=== PATIENT | female | born 1945 | race Caucasian/White ===

== ENCOUNTER 2017-02-14 13:48 | Inpatient (IN) | payer OTHER ==
[~2017-02-14] VITALS: Ht 157.5 cm; Wt 64.9 kg
[2017-02-14 13:55] VITALS: BP_SYST 138
[2017-02-14 14:43] LABS: BASOPHILS % (AUTO) 0.2 % (0.0-2.0); EOSINOPHILS % (AUTO) 0.1 % (0.0-4.0); HEMATOCRIT 45.3 % (36-48); HEMOGLOBIN 14.9 g/dL (12.0-16.0); LYMPHOCYTES # (AUTO) 1.1 K/uL (1.0-5.5); LYMPHOCYTES % (AUTO) 4.3 % (20.5-51.5); MEAN CORPUSCULAR HEMOGLOBIN 29 pg (27-31); MEAN CORPUSCULAR HGB CONC 33 % (32-36); MEAN CORPUSCULAR VOLUME 89 fL (79.0-98.0); MONOCYTES # (AUTO) 0.3 K/uL (0.0-1.0); MONOCYTES % (AUTO) 1.1 % (1.7-9.3); NEUTROPHILS # (AUTO) 23.2 K/uL (1.8-7.7); NEUTROPHILS % (AUTO) 94.3 % (40.0-70.0); PLATELET COUNT (AUTO) 166 K/uL (130-430); RED BLOOD CELL COUNT(AUTO) 5.08 MIL/uL (4.2-6.2); RED CELL DISTRIBUTION WIDTH 12.4 % (9.0-15.0); WHITE BLOOD COUNT (AUTO) 24.6 K/uL (4.8-10.8)
[2017-02-14] MEDS ORDERED: KETOROLAC TROMETHAMINE 30 MG VIAL IVP ONE (14:45)
[2017-02-14] MEDS ORDERED: NACL 0.9% 1,000 ML IV ONE ×2 (14:45→16:45)
[2017-02-14] MEDS ORDERED: fentaNYL CITRATE/PF 100 MCG/2 ML AMP IVP ONE (14:45)
[2017-02-14 14:48] LABS: BILIRUBIN,URINE NEGATIVE (NEGATIVE); BLOOD, URINE 3+ (NEGATIVE); CLARITY/URINE HAZY (CLEAR); COLOR,URINE YELLOW (YELLOW); GLUCOSE,URINE NEGATIVE (NEGATIVE); KETONES,URINE TRACE (NEGATIVE); LEUKOCYTE ESTERASE ,URINE 2+ (NEGATIVE); NITRITE, URINE NEGATIVE (NEGATIVE); PH,URINE 5.5 (5.0-8.0); PROTEIN URINE 2+ (NEGATIVE); SODIUM SERUM 137 mmol/L (136-145); UROBILINOGEN,URINE 0.2 (0.2-1.0)
[2017-02-14 14:49] LABS: ANION GAP 10 (5-15); CALCIUM 10.2 mg/dL (8.4-11.0); CHLORIDE 102 mmol/L (98-107); GLUCOSE 188 mg/dL (70-99); POTASSIUM 3.4 mmol/L (3.5-5.1); UREA NITROGEN, BLOOD 27 mg/dL (8-21)
[2017-02-14 14:53] LABS: ALANINE AMINOTRANSFERASE 90 U/L (12-78); ALBUMIN 4.5 g/dL (3.4-4.8); ASPARTATE AMINOTRANSFERASE 42 U/L (10-37); LIPASE 107 U/L (73-393); TOTAL BILIRUBIN 0.9 mg/dL (0.0-1.0); TOTAL PROTEIN, SERUM 8.7 g/dL (6.4-8.3)
[2017-02-14] MEDS ORDERED: cefOXitin SODIUM 2 GM in D5W 100 ML IV ONE (15:00)
[2017-02-14 15:02] LABS: BACTERIA,URINE MODERATE /HPF (None Seen); MUCUS,URINE None Seen /LPF (None Seen)
[2017-02-14] MEDS ORDERED: IOHEXOL 100 ML IV ONE (15:44)
[2017-02-14] MEDS ORDERED: cefOXitin SODIUM 2 GM/VIAL (MEFOXIN) ONE (16:02)
[2017-02-14] MEDS ORDERED: GLUXR500 PO (17:27)
[2017-02-14] MEDS ORDERED: LISI10TA5 PO (17:27)
[2017-02-14] MEDS ORDERED: LIP10 PO (17:27)
[2017-02-14 18:03] VITALS: BP_SYST 127
[2017-02-14 20:00] VITALS: BP_SYST 137
[2017-02-14] MEDS ORDERED: ONDANSETRON HCL 4 MG/2 ML VIAL IVP PRN (23:00)
[2017-02-14] MEDS ORDERED: POTASSIUM CHLORIDE 20 MEQ TAB.PRT.SR PO ONE (23:00)
[2017-02-14] MEDS ORDERED: INSULIN REGULAR, HUMAN 100 UNITS/ML, 10 ML VIAL (novoLIN R) SUBCUT PRN (23:15)
[2017-02-14] MEDS ORDERED: KETOROLAC TROMETHAMINE 15 MG VIAL IVP PRN (23:15)
[2017-02-14] MEDS ORDERED: MAG-AL HYDROX/SIMETH 30 ML UDC PO PRN (23:15)
[2017-02-14] MEDS ORDERED: ACETAMINOPHEN 325 MG TABLET PO PRN (23:15)
[2017-02-14] MEDS ORDERED: DEXTROSE 50% JECT 50 ML DISP.SYRIN IVP PRN (23:15)
[2017-02-15] MEDS ORDERED: PIPERACILLIN/TAZOBACTAM 4.5 GM/VIAL (ZOSYN) IV ONE (00:03)
[2017-02-15] MEDS: LR 1,000 ML IV SCH ×4 (00:28→23:17)
[2017-02-15] MEDS: PIPERACILLIN/TAZO 4.5GM/DEX-IS 100 ML IV SCH ×4 (01:24→23:16)
[2017-02-15 04:52] VITALS: BP_SYST 117
[2017-02-15 06:53] LABS: BASOPHILS % (AUTO) 0.1 % (0.0-2.0); EOSINOPHILS % (AUTO) 0.1 % (0.0-4.0); HEMATOCRIT 37.8 % (36-48); HEMOGLOBIN 12.9 g/dL (12.0-16.0); LYMPHOCYTES # (AUTO) 1.3 K/uL (1.0-5.5); LYMPHOCYTES % (AUTO) 7.6 % (20.5-51.5); MEAN CORPUSCULAR HEMOGLOBIN 30 pg (27-31); MEAN CORPUSCULAR HGB CONC 34 % (32-36); MEAN CORPUSCULAR VOLUME 89 fL (79.0-98.0); MONOCYTES # (AUTO) 0.9 K/uL (0.0-1.0); MONOCYTES % (AUTO) 5.4 % (1.7-9.3); NEUTROPHILS # (AUTO) 14.6 K/uL (1.8-7.7); NEUTROPHILS % (AUTO) 86.8 % (40.0-70.0); PLATELET COUNT (AUTO) 115 K/uL (130-430); RED BLOOD CELL COUNT(AUTO) 4.25 MIL/uL (4.2-6.2); RED CELL DISTRIBUTION WIDTH 12.9 % (9.0-15.0); WHITE BLOOD COUNT (AUTO) 16.8 K/uL (4.8-10.8)
[2017-02-15 07:14] LABS: ALANINE AMINOTRANSFERASE 66 U/L (12-78); ALBUMIN 3.6 g/dL (3.4-4.8); ANION GAP 10 (5-15); ASPARTATE AMINOTRANSFERASE 32 U/L (10-37); CALCIUM 10.1 mg/dL (8.4-11.0); CHLORIDE 106 mmol/L (98-107); CHOLESTEROL 141 mg/dL (<200); CREATININE 0.95 mg/dL (0.55-1.30); GLUCOSE 136 mg/dL (70-99); HDL CHOLESTEROL 56 mg/dL (>55); LDL CHOLESTEROL 70 mg/dL (<100); LIPASE 110 U/L (73-393); POTASSIUM 4.5 mmol/L (3.5-5.1); SODIUM SERUM 140 mmol/L (136-145); TOTAL BILIRUBIN 0.9 mg/dL (0.0-1.0); TOTAL PROTEIN, SERUM 7.2 g/dL (6.4-8.3); TRIGLYCERIDES 75 mg/dL (30-150); UREA NITROGEN, BLOOD 21 mg/dL (8-21)
[2017-02-15 08:00] VITALS: BP_SYST 128
[2017-02-15] MEDS: ATORVASTATIN 10 MG TABLET PO SCH (10:30)
[2017-02-15] MEDS: LISINOPRIL 10 MG TABLET (PRINIVIL) PO SCH (10:31)
[2017-02-15 12:10] VITALS: BP_SYST 128
[2017-02-15 16:00] VITALS: BP_SYST 111
[2017-02-15 16:00] LABS: PROTHROMBIN TIME 10.9 SECS (9.5-12.5)
[2017-02-15 19:00] VITALS: BP_SYST 124
[2017-02-15 20:00] VITALS: BP_SYST 124
[2017-02-15] MEDS ORDERED: ZOLPIDEM TARTRATE 5 MG TABLET PO PRN (21:45)
[2017-02-16 02:40] VITALS: BP_SYST 146
[2017-02-16 04:28] VITALS: BP_SYST 114
[2017-02-16 06:36] LABS: BASOPHILS % (AUTO) 0.2 % (0.0-2.0); EOSINOPHILS % (AUTO) 0.3 % (0.0-4.0); HEMATOCRIT 37.1 % (36-48); HEMOGLOBIN 12.8 g/dL (12.0-16.0); LYMPHOCYTES # (AUTO) 1.9 K/uL (1.0-5.5); LYMPHOCYTES % (AUTO) 18.8 % (20.5-51.5); MEAN CORPUSCULAR HEMOGLOBIN 31 pg (27-31); MEAN CORPUSCULAR HGB CONC 35 % (32-36); MEAN CORPUSCULAR VOLUME 88 fL (79.0-98.0); MONOCYTES # (AUTO) 0.8 K/uL (0.0-1.0); MONOCYTES % (AUTO) 8.4 % (1.7-9.3); NEUTROPHILS # (AUTO) 7.3 K/uL (1.8-7.7); NEUTROPHILS % (AUTO) 72.3 % (40.0-70.0); PLATELET COUNT (AUTO) 117 K/uL (130-430); RED CELL DISTRIBUTION WIDTH 12.6 % (9.0-15.0)
[2017-02-16 06:37] LABS: ANION GAP 6 (5-15); ASPARTATE AMINOTRANSFERASE 30 U/L (10-37); CALCIUM 9.1 mg/dL (8.4-11.0); CHLORIDE 105 mmol/L (98-107); CREATININE 0.88 mg/dL (0.55-1.30); GLUCOSE 116 mg/dL (70-99); POTASSIUM 3.9 mmol/L (3.5-5.1); SODIUM SERUM 138 mmol/L (136-145); TOTAL BILIRUBIN 0.9 mg/dL (0.0-1.0); UREA NITROGEN, BLOOD 18 mg/dL (8-21)
[2017-02-16 06:38] LABS: ALANINE AMINOTRANSFERASE 61 U/L (12-78); ALBUMIN 3.3 g/dL (3.4-4.8); LIPASE 179 U/L (73-393); TOTAL PROTEIN, SERUM 6.9 g/dL (6.4-8.3)
[2017-02-16 08:00] VITALS: BP_SYST 127
[2017-02-16] MEDS: PIPERACILLIN/TAZO 4.5GM/DEX-IS 100 ML IV SCH (08:40)
[2017-02-16] MEDS: ATORVASTATIN 10 MG TABLET PO SCH (11:09)
[2017-02-16] MEDS: LR 1,000 ML IV SCH (11:09)
[2017-02-16] MEDS: LISINOPRIL 10 MG TABLET (PRINIVIL) PO SCH (11:11)
[2017-02-16 12:53] VITALS: BP_SYST 109
[2017-02-16] MEDS ORDERED: CEPH-568 PO (14:45)
[2017-02-16] MEDS ORDERED: LACT1CAP71 PO (14:45)
[2017-02-16 14:56] VITALS: BP_SYST 109
== END 2017-02-16 15:20 | disposition home or self-care (01) | DRG 872 ==
LOC: SED 13:48 → SMU 17:37
PROVIDERS: ADMIT Internal Medicine; ATTEND Internal Medicine
DX: A41.9 Sepsis, unspecified organism (principal); N39.0 Urinary tract infection, site not specified; N13.2 Hydronephrosis with renal and ureteral calculous obstruction; K80.00 Calculus of gallbladder with acute cholecystitis without obstruction; N12 Tubulo-interstitial nephritis, not specified as acute or chronic; I70.90 Unspecified atherosclerosis; E66.9 Obesity, unspecified; E87.6 Hypokalemia; E11.9 Type 2 diabetes mellitus without complications; K57.90 Diverticulosis of intestine, part unspecified, without perforation or abscess without bleeding; E78.5 Hyperlipidemia, unspecified; I10 Essential (primary) hypertension; Z80.0 Family history of malignant neoplasm of digestive organs; Z82.3 Family history of stroke; Z88.2 Allergy status to sulfonamides; Z90.710 Acquired absence of both cervix and uterus; Z68.26 Body mass index [BMI] 26.0-26.9, adult
CPT/HCPCS: 36415; 71010; 76700-TC; 78226; 80053; 80061; 81000-TC; 82962; 83036; 83605; 83690-TC; 85025; 85610-TC; 85730-TC; 86886; 86900; 86901; 87040-TC; 87081; 87086; 93005; 96361; 96365; 96375; 99285; A9537; J0694; J1815; J1885; J2543; J3010; J7030; J7060; J7120; Q9967

== ENCOUNTER 2017-07-09 11:41 | Outpatient (CLI) | payer OTHER ==
[~2017-07-09 11:41] MED LIST: CEPH-568 PO; GLUXR500 PO; LACT1CAP71 PO; LIP10 PO; LISI10TA5 PO
== END 2017-07-09 17:10 | disposition home or self-care (01) ==
LOC: SMA 11:41
PROVIDERS: ATTEND Family Medicine
DX: Z12.31 Encounter for screening mammogram for malignant neoplasm of breast (principal)
CPT/HCPCS: G0202

== ENCOUNTER 2018-11-18 13:29 | Outpatient (CLI) | payer OTHER | END 2018-11-18 21:17 | disposition home or self-care (01) | LOC: SRD 13:29 | DX: Z01.818 Encounter for other preprocedural examination (principal); I70.0 Atherosclerosis of aorta | CPT/HCPCS: 71046-TC ==

== ENCOUNTER 2019-02-12 12:52 | Outpatient (CLI) | payer OTHER | END 2019-02-12 20:54 | disposition home or self-care (01) | LOC: SUS 12:52 | PROVIDERS: ATTEND Family Medicine | DX: N13.30 Unspecified hydronephrosis (principal); N94.89 Other specified conditions associated with female genital organs and menstrual cycle | CPT/HCPCS: 76770 ==

== ENCOUNTER 2019-04-08 11:41 | Outpatient (CLI) | payer OTHER | END 2019-04-08 19:53 | disposition home or self-care (01) | LOC: SRD 11:41 | PROVIDERS: ATTEND Family Medicine | DX: Z01.818 Encounter for other preprocedural examination (principal); N20.0 Calculus of kidney | CPT/HCPCS: 71046-TC ==

== ENCOUNTER 2020-06-28 10:39 | Outpatient (CLI) | payer OTHER | END 2020-06-28 20:04 | disposition home or self-care (01) | LOC: SMA 10:39 | PROVIDERS: ATTEND Family Medicine | DX: Z12.31 Encounter for screening mammogram for malignant neoplasm of breast (principal) | CPT/HCPCS: 77067 ==

== ENCOUNTER 2021-01-11 10:48 | Emergency (ER) | payer OTHER ==
[~2021-01-11] VITALS: Ht 160 cm; Wt 72.6 kg
[~2021-01-11 10:48] MED LIST changes: +LISI10TA29 PO; -LISI10TA5 PO
[2021-01-11 11:12] VITALS: BP_SYST 125
[2021-01-11 12:36] VITALS: BP_SYST 125
== END 2021-01-11 12:37 | disposition home or self-care (01) ==
LOC: SED 10:48
DX: S90.31XA Contusion of right foot, initial encounter (principal); X58.XXXA Exposure to other specified factors, initial encounter; Y93.89 Activity, other specified; Y92.89 Other specified places as the place of occurrence of the external cause; Y99.8 Other external cause status
CPT/HCPCS: 99283

== ENCOUNTER 2021-06-29 10:44 | Outpatient (CLI) | payer OTHER | END 2021-06-29 17:30 | disposition home or self-care (01) | LOC: SMA 10:44 | PROVIDERS: ATTEND Family Medicine | DX: Z12.31 Encounter for screening mammogram for malignant neoplasm of breast (principal) | CPT/HCPCS: 77067 ==

== ENCOUNTER 2022-03-04 15:38 | Emergency (ER) | payer OTHER ==
[~2022-03-04] VITALS: Ht 157.5 cm; Wt 64.4 kg
[2022-03-04 16:25] VITALS: BP_SYST 134
[2022-03-04] MEDS ORDERED: ONDANSETRON 4 MG ODT TAB PO ONE (17:00)
[2022-03-04] MEDS ORDERED: KETOROLAC TROMETHAMINE 30 MG VIAL IM ONE (17:00)
[2022-03-04 17:15] LABS: LYMPHOCYTES # (AUTO) 0.6 K/uL (1.0-5.5); MONOCYTES # (AUTO) 0.5 K/uL (0.0-1.0); MONOCYTES % (AUTO) 3.6 % (1.7-9.3)
[2022-03-04 17:25] LABS: ANION GAP 10 (5-15); CALCIUM 8.7 mg/dL (8.4-11.0); CHLORIDE 102 mmol/L (98-107); GLUCOSE 195 mg/dL (70-99); POTASSIUM 3.7 mmol/L (3.5-5.1); SODIUM SERUM 136 mmol/L (136-145); UREA NITROGEN, BLOOD 23 mg/dL (8-21)
[2022-03-04 17:27] LABS: BASOPHILS # (AUTO) 0.1 K/uL (0.0-0.2); BASOPHILS % (AUTO) 0.4 % (0.0-2.0); HEMATOCRIT 44.3 % (36-48); HEMOGLOBIN 14.8 g/dL (12.0-16.0); LYMPHOCYTES % (AUTO) 4.6 % (20.5-51.5); MEAN CORPUSCULAR HEMOGLOBIN 30 pg (27-31); MEAN CORPUSCULAR HGB CONC 34 % (32-36); MEAN CORPUSCULAR VOLUME 88 fL (79.0-98.0); NEUTROPHILS # (AUTO) 11.6 K/uL (1.8-7.7); NEUTROPHILS % (AUTO) 91.4 % (40.0-70.0); PLATELET COUNT (AUTO) 84 K/uL (130-430); RED BLOOD CELL COUNT(AUTO) 5.01 MIL/uL (4.2-6.2); RED CELL DISTRIBUTION WIDTH 13.7 % (9.0-15.0); WHITE BLOOD COUNT (AUTO) 12.7 K/uL (4.8-10.8)
[2022-03-04 17:31] LABS: ALANINE AMINOTRANSFERASE 75 U/L (12-78); AMYLASE 55 U/L (0-100); ASPARTATE AMINOTRANSFERASE 57 U/L (10-37); LIPASE 72 U/L (73-393)
[2022-03-04 17:42] LABS: C-REACTIVE PROTEIN QUANT < 0.2 mg/dL (0-0.5)
--- NOTE | 2022-03-04 18:35 | NUR ---
Patient to ER bed 03 to gown for evaluation. Side rails up. Report given to FANTA Wang
--- NOTE | 2022-03-04 18:40 | NUR ---
FIRST CONTACT WITH PT. PT HERE WITH C/O R FLANK PAIN SINCE THIS AM. 06/11 PAIN. ASSOCIATED URINARY FREQUENCY, N/V. DENIES DYSURIA, HEMATURIA. HX KIDNEY STONES REMOVED. DENIES FEVER, CHESTPAIN, SOB. RESP EVEN AND UNLABORED. VSS. WILL CONT TO MONITOR
[2022-03-04] MEDS ORDERED: HYDR-3917 PO ×2 (19:02→19:31)
[2022-03-04] MEDS ORDERED: IBUP-1969 PO ×2 (19:02→19:31)
[2022-03-04 19:10] LABS: BILIRUBIN,URINE NEGATIVE (NEGATIVE); BLOOD, URINE 3+ (NEGATIVE); COLOR,URINE YELLOW (YELLOW); GLUCOSE,URINE 1+ (NEGATIVE); KETONES,URINE 1+ (NEGATIVE); LEUKOCYTE ESTERASE ,URINE NEGATIVE (NEGATIVE); NITRITE, URINE NEGATIVE (NEGATIVE); PROTEIN URINE 1+ (NEGATIVE); UROBILINOGEN,URINE 0.2 (0.2-1.0)
[2022-03-04 19:20] LABS: CLARITY/URINE HAZY (CLEAR)
[2022-03-04 19:27] LABS: BACTERIA,URINE FEW /HPF (None Seen); RBC,URINE 20-50 /HPF (0-3)
[2022-03-04 19:28] LABS: MUCUS,URINE None Seen /LPF (None Seen)
--- NOTE | 2022-03-04 19:42 | NUR ---
Patient given written and verbal discharge instructions and verbalizes understanding. ER MD Lerner discussed with patient the results and treatment provided. Patient in stable condition. ID arm band removed. Rx of [place] and Ibuprofen sent to pharmacy of choice. Patient educated on pain management and to follow up with PMD. Pain Scale 0/10 at time of discharge. Opportunity for questions provided and answered. Medication side effect fact sheet provided.
[2022-03-04 19:45] VITALS: BP_SYST 147
== END 2022-03-04 19:45 | disposition home or self-care (01) ==
LOC: SED 15:38
DX: N23 Unspecified renal colic (principal); R11.10 Vomiting, unspecified; E11.9 Type 2 diabetes mellitus without complications; I10 Essential (primary) hypertension; Z79.899 Other long term (current) drug therapy
CPT/HCPCS: 36415; 74176; 76376; 80053; 81000; 82150; 83605; 83690; 85025; 86140; 96372; 99284; J1885; Q0162

== ENCOUNTER 2022-04-25 10:52 | Outpatient (CLI) | payer OTHER ==
[~2022-04-25 10:52] MED LIST changes: +HYDR-3917 PO; +IBUP-1969 PO
== END 2022-04-25 19:57 | disposition home or self-care (01) ==
LOC: SMA 10:52
PROVIDERS: ATTEND Family Medicine
DX: Z12.31 Encounter for screening mammogram for malignant neoplasm of breast (principal); N64.89 Other specified disorders of breast
CPT/HCPCS: 77067

== ENCOUNTER 2023-01-22 11:12 | Emergency (ER) | payer OTHER ==
[~2023-01-22] VITALS: Ht 157.5 cm; Wt 68.5 kg
[2023-01-22 11:17] VITALS: BP_SYST 131
[2023-01-22] MEDS ORDERED: TRAM50TA2 PO ×3 (12:55→12:59)
[2023-01-22 13:00] VITALS: BP_SYST 125
== END 2023-01-22 13:00 | disposition home or self-care (01) ==
LOC: SED 11:12
DX: S43.401A Unspecified sprain of right shoulder joint, initial encounter (principal); S05.11XA Contusion of eyeball and orbital tissues, right eye, initial encounter; E11.9 Type 2 diabetes mellitus without complications; I10 Essential (primary) hypertension; Z79.899 Other long term (current) drug therapy; W01.0XXA Fall on same level from slipping, tripping and stumbling without subsequent striking against object, initial encounter; Y93.89 Activity, other specified; Y92.89 Other specified places as the place of occurrence of the external cause; Y99.8 Other external cause status
CPT/HCPCS: 70450-TC; 70480; 76376; 99284